=== PATIENT | male | born 1995 | race Caucasian/White ===

== ENCOUNTER 2019-10-31 09:17 | Emergency (ER) | payer OTHER, SELFPAY ==
[2019-10-31 09:19] VITALS: BP 148/56; PULSE 98; RESP 16; TEMP 36.7; O2SAT 98; BMI 19.5
--- NOTE | 2019-10-31 09:50 | ED.DCSUM_ITS ---
History of Present Illness Chief Complaint: Abscess Informant: Patient Onset: Weeks Current Severity: Mild Narrative: Patient complains of what appears to be a left pilonidal cyst that has had for weeks no specific trigger, no history of the above, no history of skin infections or MRSA, healthy no past history, reports it seems more tender last few days and he comes in for evaluation bowel and bladder habits unremarkable past history unremarkable Past Medical History - Allergies and Home Meds Allergies/Adverse Reactions: Allergies No Known Allergies Allergy (Verified 10/31/19 09:18) Primary Care Physician: Misael Caldwell MD [Primary Care Provider] - Past Medical History: - - Unremarkable except as above Review of Systems General: Denies: Chills, Fever, Sweats Eyes: Denies: Visual changes - bilaterally, Diplopia ENT: Denies: Rhinorrhea, Sore throat Cardiovascular: Denies: Chest pain, Palpitations Respiratory: Denies: Dyspnea, Cough, Dyspnea on exertion Gastrointestinal: Reports: - - Left pilonidal cyst. Denies: Abdominal pain, Nausea, Vomiting, Diarrhea, Melena, Hematochezia Genitourinary: Denies: Dysuria, Hematuria, Frequency Musculoskeletal: Denies: Back pain, Extremity Pain Skin: Denies: Rash, Wounds Neurological: Denies: Headache, Weakness, Numbness Physical Exam Vital Signs/Narrative: Vital Signs Temp Pulse Resp BP Pulse Ox 10/31/19 09:19 98.0 F 98 16 148/56 H 98 General: Well nourished, Well developed, No Acute Distress Head: Normocephalic, Atraumatic Eyes: Perrl, EOMI ENT: Moist mucous membranes, No rhinorrhea Neck: Supple, Nontender Cardiovascular: Regular rate, Regular rhythm, No murmurs Respiratory: No distress, CTA bilaterally, Chest nontender Abdomen: Soft, Nontender, Nondistended, Normal bowel sounds Rectal: - - The patient has a left pilonidal cyst to the left buttock crease, it is fluctuant, and red it appears to be trying to become to a volcanic tiny head but it is not draining the abdomen soft the pelvic exam otherwise unremarkable we discussed I&D versus antibiotics the patient agreed to I&D Back: Nontender, Normal Inspection Extremities: Nontender, No edema Skin: Normal color, No rash Neurological: Alert, Oriented x3, Cranial nerves II-XII grossly intact, Normal Strength, Normal Sensation Psychological: Normal affect, Normal Mood Diagnostic/Tx/Re-eval - Medical Decision Making Patient was sterilely prepped pilonidal cyst underwent I&D using standard technique, there was copious amounts of yellow fluid loculations broken down irrigated to clear cultures obtained he tolerated procedure well Understands the wound care required now Bactrim Naprosyn Burgin as a rescue medicine he will follow-up with his outpatient providers or 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
[2019-10-31] MEDS: HYDROcodone Bitartrate/Apap 5/325 Tablet PO (10:03)
[2019-10-31] MEDS: Naproxen 500 MG Tablet PO (10:03)
[2019-10-31] MEDS: Smz/Tmp Ds Tablet 1 TABLET PO (10:11)
== END 2019-10-31 10:13 | disposition home or self-care (01) ==
LOC: ED 10:01
PROVIDERS: Emergency Provider Emergency Medicine; Family Provider Hospitalist; PCP Hospitalist
DX: L05.01 Pilonidal cyst with abscess (principal)
CPT/HCPCS: 10080; 87070; 87077; 87186; 87205; 99283

== ENCOUNTER → 2021-09-02 | Outpatient (CLI) | payer SELFPAY | END | disposition home or self-care (01) | PROVIDERS: Referring Provider Physician Assistant; Visit Provider Physician Assistant | DX: L05.01 Pilonidal cyst with abscess (principal) | CPT/HCPCS: 87070; 87075; 87077; 87186; 87205 ==